=== PATIENT | female | born 1965 | race Caucasian/White ===

== ENCOUNTER → 2017-01-27 | Outpatient (CLI) | payer BC ==
--- NOTE | 2017-01-27 14:29 | KCIC ---
Ultrasound Pelvis Indication: Pelvic mass Technique: Multiple real-time grayscale images were obtained over the pelvis transabdominally and transvaginally. Color Doppler imaging was utilized. Comparison: None Findings: The uterus is normal in size measuring 12.7 x 9.7 x 9.7 cm. There is a large myometrial mass measuring 8.3 x 7.3 x 7.3 cm. Small cervical nabothian cyst is also noted. The endometrium is obscured by the arch myometrial mass. The ovaries are not visualized. No pelvic free fluid is identified. Impression: Large uterine fibroid measuring up to 8.3 cm. Electronically signed by: Darnell Maradiaga MD (01/27/2017 2:26 PM)
== END | disposition home or self-care (01) ==
LOC: KCIC US 10:34
PROVIDERS: ATTEND Nurse Practitioner Family
DX: D25.9 Leiomyoma of uterus, unspecified (principal); R19.00 Intra-abdominal and pelvic swelling, mass and lump, unspecified site
CPT/HCPCS: 76830; 76856

== ENCOUNTER → 2018-12-19 | Outpatient (CLI) | payer BC ==
--- NOTE | 2018-12-19 10:38 | KCIC ---
EXAM: Pelvic sonogram. HISTORY: Uterine fibroid. TECHNIQUE: Sonographic imaging of the pelvis was performed. COMPARISON: 01/27/2017. FINDINGS: The uterus measures 11.5 x 8.9 x 10.0 cm. The endometrial stripe measures 4 mm in thickness. There is a large uterine fibroid within the left anterior uterine fundus measuring 8.2 x 7.8 x 7.3 cm. The ovaries are normal in size and demonstrate normal blood flow. There are incidental nabothian cysts within the cervix. There is no pelvic free fluid. IMPRESSION: 1. 8.2 cm uterine fibroid. This is not significantly changed compared to the prior study, allowing for differences in measurement technique. 2. Otherwise, relatively unremarkable pelvic sonogram. Electronically signed by: Franchesca Colon MD (12/19/2018 10:35 AM) [email or web address]
--- NOTE | 2018-12-19 10:46 | KCIC ---
ABDOMEN LTD History: Left lower quadrant palpable nodule Comparison: None. Findings: Multiple sonographic images of the left abdomen are submitted, no sonographic abnormality demonstrated although reportedly patient could not directly indicate site of concern as not palpable during exam. Impression: 1. No sonographic abnormality is demonstrated. Electronically signed by: Manny Lanza MD (12/19/2018 10:43 AM) [id number]
== END | disposition home or self-care (01) ==
LOC: KCIC US 09:16
PROVIDERS: ATTEND Nurse Practitioner Family
DX: M79.89 Other specified soft tissue disorders (principal); D25.9 Leiomyoma of uterus, unspecified
CPT/HCPCS: 76705; 76856

== ENCOUNTER → 2019-08-23 | Outpatient (CLI) | payer BC, OTHER ==
--- NOTE | 2019-08-23 14:05 | KCIC ---
Right breast ultrasound: Reason for examination: Abnormal mammogram: Comparison is made to mammographic exam dated 08/06/2019. Ultrasound examination of the right breast and axilla was performed. In the 9:00 position 5 cm from the nipple, there is a hypoechoic irregularly marginated nodule with posterior shadowing measuring 7 x 5.6 mm in size. Malignancy is suspected. Further evaluation with ultrasound-guided biopsy is recommended. No abnormal appearing lymph nodes are seen in the axilla. IMPRESSION: 7 x 5.6 mm nodule at the 9:00 position 5 cm from the nipple. Suspicious of malignancy. Recommend ultrasound-guided biopsy. BI-RADS Category 5: Highly suggestive of malignancy. I have discussed these findings with the patient and [place], the side stitcher at the office of [facility] was notified about these findings at 1400 on 08/23/2019. "Our facility is accredited by the [employer] Mammography Program." Electronically signed by: Mercedes Johnson MD (08/23/2019 2:02 PM) [id number]
== END | disposition home or self-care (01) ==
LOC: KCIC MAMMO 12:39
PROVIDERS: ATTEND Nurse Practitioner Family
DX: N63.11 Unspecified lump in the right breast, upper outer quadrant (principal)
CPT/HCPCS: 76641

== ENCOUNTER → 2020-04-16 | Outpatient (CLI) | payer OTHER ==
--- NOTE | 2020-04-16 13:32 | KCIC ---
Pelvic ultrasound. INDICATION: Uterine fibroid COMPARISON: Pelvic ultrasound 12/19/2018. TECHNIQUE: Grayscale color and spectral Doppler imaging of the pelvis was performed transabdominally. FINDINGS: The uterus measures 11.5 x 10.0 x 9.9 cm in length by with by AP diameters. It contains a large hypoechoic left-sided intramural mass compatible with a uterine fibroid measuring 8.5 x 7.4 x 8.8 cm. Previous pelvic ultrasound reported this mass as measuring 8.2 x 7.8 x 7.3 cm. Endometrial stripe measures 1.2 cm Normal right ovary measuring 2.3 x 2.3 x 1.8 cm show normal flow. Normal left ovary measuring 2.7 x 2.7 x 1.5 cm also show normal flow. No pelvic free fluid. IMPRESSION: Marginal interval enlargement of a dominant left-sided uterine mass compatible with a leiomyoma, now measuring 8.5 x 7.4 x 8.8 cm (compared with 8.2 x 7.8 x 7.3 cm is recorded previously). Otherwise unremarkable pelvic ultrasound. Electronically signed by: Melvin Woodard MD (04/16/2020 1:30 PM) [id number]
== END | disposition home or self-care (01) ==
LOC: KCIC US 08:01
PROVIDERS: ATTEND Nurse Practitioner Family
DX: D25.9 Leiomyoma of uterus, unspecified (principal)
CPT/HCPCS: 76856

== ENCOUNTER → 2020-08-10 | Outpatient (CLI) | payer OTHER ==
--- NOTE | 2020-08-11 09:16 | RAD ---
Abdominal pelvic ultrasound compared to similar exam dated April 16, 2020 for endometrial thicken ing, tamoxifen therapy. TECHNIQUE AND FINDINGS: Real-time grayscale and color Doppler evaluation of the pelvic organs is perf ormed. The urinary bladder is fluid distended and provide an adequate acoustic window. The uterus is once again enlarged by large left anterior heterogeneous mass measuring 8.8 cm in greatest dimension, and grossly consistent with prior examination. This most likely represents benign stable uterine fib roid. The uterus itself, inclusive of the mass measures 13.2 x 9.3 x 9.1 cm. The endometrium is thick ened measuring 1.6 cm, and is slightly thicker than on the prior exam where it measured 1.2 cm.The ri ght ovary measures 2.6 x 1.4 x 1.3 cm and demonstrates normal blood flow. The left ovary measures 3.4 x 2.0 x 1.9 cm and is normal blood flow. No free fluid is identified. IMPRESSION: 1. Stable large left anterior leiomyoma. 2. Slightly increase uniform endometrial thickening. Electronically signed by: Dawson Roman MD (08/11/2020 9:13 AM) [id number]
== END ==
LOC: US 15:46
PROVIDERS: ATTEND Obstetrics & Gynecology
DX: D25.9 Leiomyoma of uterus, unspecified (principal); R93.89 Abnormal findings on diagnostic imaging of other specified body structures
CPT/HCPCS: 76856